=== PATIENT | female | born 1980 | race Two or more races ===

== ENCOUNTER 2022-05-20 12:40 | Inpatient (IN) | payer OTHER ==
[~2022-05-20] VITALS: Ht 157.5 cm; Wt 87.5 kg
[2022-05-27] MEDS ORDERED: MEGESTROL ACETA20 MG (08:27)
[2022-05-27] MEDS ORDERED: MEDROXYPROGESTE10 MG (08:27)
[2022-05-27] MEDS ORDERED: MONTELUKAST SOD10 MG (08:27)
[2022-05-27] MEDS ORDERED: PROGESTERONE100 M1 (08:27)
== END 2022-05-29 12:59 | disposition home or self-care (01) | DRG 743 ==
LOC: SURH 05-26 07:30 → O/R 05-26 10:39 → OB/GYN 05-26 10:39
PROVIDERS: ADMIT Obstetrics & Gynecology; ATTEND Obstetrics & Gynecology
PROC: 0UT70ZZ Resection of Bilateral Fallopian Tubes, Open Approach (ICD-10-PCS; 2022-05-26)
PROC: 0UT90ZZ Resection of Uterus, Open Approach (ICD-10-PCS; principal; 2022-05-26 09:30)
DX: D25.0 Submucous leiomyoma of uterus (principal); N80.03 Adenomyosis of the uterus; Z20.822 Contact with and (suspected) exposure to COVID-19